=== PATIENT | female | born 1975 | race Caucasian/White ===

== ENCOUNTER 2016-09-10 15:48 | Emergency (ER) | payer OTHER ==
[~2016-09-10] VITALS: Ht 172.7 cm; Wt 86.1 kg
[2016-09-10] MEDS ORDERED: NOVOLOG MI100 UNIT/4 SC (16:22)
[2016-09-10] MEDS ORDERED: LYRICA200 MG PO (16:23)
[2016-09-10] MEDS ORDERED: EFFEXOR XR150 MG PO (16:23)
[2016-09-10 16:35] LABS: MCH 31.6 PG (29.0-34.0); MCHC 34.1 G/DL (30.0-36.0); MCV 92.6 FL (83-99); MEAN PLAT.VOLUME 10.2 uM^3 (9.5-12.4); PLATELET COUNT 227 K/uL (156-360); RBC DIS.WIDTH-CV 12.4 % (11.8-14.6); RBC DIS.WIDTH-SD 42.5 % (39-53); RED BLOOD COUNT 4.97 M/uL (3.80-5.20); WHITE BLOOD COUNT 10.5 K/uL (4.1-10.2)
[2016-09-10 16:45] LABS: CHLORIDE 105 mEq/L (99-109); POTASSIUM 4.2 mEq/L (3.7-5.4); SODIUM 138 mEq/L (136-147)
[2016-09-10 16:47] LABS: GLUCOSE 245 mg/dL (70-99)
[2016-09-10 16:49] LABS: ANION GAP 8 MEQ/L (2-14); TOTAL BILIRUBIN 1.2 mg/dL (0.0-1.0)
[2016-09-10 16:51] LABS: ALKALINE PHOSPHATASE 55 IU/L (3-129); GFR ESTIMATE (CALCULATED) > 59 mL/min/
[2016-09-10 16:52] LABS: UREA NITROGEN (BUN) 11 mg/dL (9-23)
[2016-09-10] MEDS ORDERED: VIBRAMYCIN100 MG PO (17:36)
[2016-09-10] MEDS ORDERED: ZOFRAN ODT4 MG PO (17:41)
[2016-09-10] MEDS ORDERED: ULTRAM50 MG PO (18:12)
[2016-09-10 20:30] VITALS: BP 125/81
== END 2016-09-10 20:32 | disposition home or self-care (01) ==
LOC: EME 15:48
PROVIDERS: Nurse Practitioner Family
DX: L97.519 Non-pressure chronic ulcer of other part of right foot with unspecified severity (principal); E11.9 Type 2 diabetes mellitus without complications; Z91.19 Patient's noncompliance with other medical treatment and regimen; Z88.1 Allergy status to other antibiotic agents; Z88.6 Allergy status to analgesic agent; F17.200 Nicotine dependence, unspecified, uncomplicated
CPT/HCPCS: 73630; 80053; 83605; 85027; 87070; 87077; 87147; 87205; 99281; 99284; J0696; J2405; J7030; J7050

== ENCOUNTER 2017-01-01 12:14 | Emergency (ER) | payer OTHER ==
[~2017-01-01] VITALS: Ht 172.7 cm; Wt 85.0 kg
[~2017-01-01 12:14] MED LIST: EFFEXOR XR150 MG PO; LYRICA200 MG PO; NOVOLOG MI100 UNIT/4 SC; ULTRAM50 MG PO; VIBRAMYCIN100 MG PO; ZOFRAN ODT4 MG PO
[2017-01-01 13:07] LABS: ADD MIUA? NO; BILIRUBIN NEGATIVE; BLOOD NEGATIVE; COLOR YELLOW ((YELLOW)); GLUCOSE (STRIP) >=500; KETONES 20; LEUKOCYTES NEGATIVE; NITRITE NEGATIVE; PROTEIN (STRIP) NEGATIVE; SPECIFIC GRAVITY 1.039 (1.000-1.030); UROBILINOGEN 0.2 MG/DL (0.2-1.0)
[2017-01-01 13:08] LABS: HEMATOCRIT 44.8 % (36.0-46.0); MCH 31.4 PG (29.0-34.0); MCHC 34.4 G/DL (30.0-36.0); MCV 91.4 FL (83-99); MEAN PLAT.VOLUME 9.7 uM^3 (9.5-12.4); PLATELET COUNT 299 K/uL (156-360); RBC DIS.WIDTH-CV 11.7 % (11.8-14.6); RBC DIS.WIDTH-SD 39.2 % (39-53); WHITE BLOOD COUNT 10.1 K/uL (4.1-10.2)
[2017-01-01 13:12] LABS: UCUL ADDED? NO
[2017-01-01 13:13] LABS: CHLORIDE 103 mEq/L (99-109); POTASSIUM 3.7 mEq/L (3.7-5.4); SODIUM 137 mEq/L (136-147)
[2017-01-01 13:15] LABS: GLUCOSE 366 mg/dL (70-99)
[2017-01-01 13:17] LABS: ANION GAP 10 MEQ/L (2-14)
[2017-01-01 13:19] LABS: GFR ESTIMATE (CALCULATED) > 59 mL/min/
[2017-01-01 13:20] LABS: UREA NITROGEN (BUN) 7 mg/dL (9-23)
[2017-01-01] MEDS ORDERED: ZOFRAN4 MG PO (15:11)
[2017-01-01] MEDS ORDERED: MOTRIN600 MG PO (15:11)
[2017-01-01 15:25] VITALS: BP 108/68
== END 2017-01-01 15:27 | disposition home or self-care (01) ==
LOC: EME 12:14
DX: R10.31 Right lower quadrant pain (principal); E11.65 Type 2 diabetes mellitus with hyperglycemia; Z79.4 Long term (current) use of insulin; Z87.442 Personal history of urinary calculi; Z85.41 Personal history of malignant neoplasm of cervix uteri; F17.200 Nicotine dependence, unspecified, uncomplicated
CPT/HCPCS: 74176; 80048; 81003; 83605; 85027; 99281; 99285; J1170; J1885; J2405; J7050

== ENCOUNTER 2017-03-05 20:44 | Emergency (ER) | payer OTHER ==
[~2017-03-05] VITALS: Ht 172.7 cm; Wt 83.1 kg
[~2017-03-05 20:44] MED LIST changes: +MOTRIN600 MG PO; +ZOFRAN4 MG PO
[2017-03-05 21:11] LABS: POINT-OF-CARE METER ID UU13113778
[2017-03-05 21:31] LABS: ADD MIUA? NO; BILIRUBIN SMALL; BLOOD NEGATIVE; COLOR YELLOW ((YELLOW)); GLUCOSE (STRIP) >=500; KETONES 5; LEUKOCYTES NEGATIVE; NITRITE NEGATIVE; PROTEIN (STRIP) 30; UCUL ADDED? NO; UROBILINOGEN 0.2 MG/DL (0.2-1.0)
[2017-03-05 21:33] LABS: HEMATOCRIT 51.8 % (36.0-46.0); MCH 31.8 PG (29.0-34.0); MCHC 34.9 G/DL (30.0-36.0); MEAN PLAT.VOLUME 9.7 uM^3 (9.5-12.4); PLATELET COUNT 432 K/uL (156-360); RBC DIS.WIDTH-CV 12.2 % (11.8-14.6); RBC DIS.WIDTH-SD 40.3 % (39-53); RED BLOOD COUNT 5.69 M/uL (3.80-5.20); WHITE BLOOD COUNT 14.6 K/uL (4.1-10.2)
[2017-03-05 21:49] LABS: CHLORIDE 101 mEq/L (99-109); SODIUM 139 mEq/L (136-147)
[2017-03-05 21:51] LABS: GLUCOSE 272 mg/dL (70-99)
[2017-03-05 21:52] LABS: ANION GAP 19 MEQ/L (2-14)
[2017-03-05 21:55] LABS: GFR ESTIMATE (CALCULATED) > 59 mL/min/
[2017-03-05 21:56] LABS: UREA NITROGEN (BUN) 3 mg/dL (9-23)
[2017-03-05 23:21] LABS: CARBON DIOXIDE (BICARBONATE) 24.9 MEQ/L (20-31)
[2017-03-05] MEDS ORDERED: VIBRAMYCIN100 MG PO (23:48)
[2017-03-05] MEDS ORDERED: FLAGYL500 MG PO (23:48)
[2017-03-06 00:15] LABS: CHLORIDE 107 mEq/L (99-109); POTASSIUM 3.3 mEq/L (3.7-5.4); SODIUM 140 mEq/L (136-147)
[2017-03-06 00:16] LABS: GLUCOSE 220 mg/dL (70-99)
[2017-03-06 00:18] LABS: ANION GAP 14 MEQ/L (2-14)
[2017-03-06 00:20] LABS: GFR ESTIMATE (CALCULATED) > 59 mL/min/
[2017-03-06 00:21] LABS: UREA NITROGEN (BUN) 4 mg/dL (9-23)
[2017-03-06 00:40] VITALS: BP 130/75
[2017-03-06 13:01] LABS: CHLAMYDIA TRACHOMATIS NEGATIVE; NEISSERIA GONORRHOEAE NEGATIVE
== END 2017-03-06 00:40 | disposition home or self-care (01) ==
LOC: EME 20:44
PROVIDERS: Nurse Practitioner Family
DX: N83.01 Follicular cyst of right ovary (principal); R10.31 Right lower quadrant pain; A59.9 Trichomoniasis, unspecified; E11.9 Type 2 diabetes mellitus without complications; Z85.41 Personal history of malignant neoplasm of cervix uteri; Z79.4 Long term (current) use of insulin; F17.200 Nicotine dependence, unspecified, uncomplicated; Z88.5 Allergy status to narcotic agent
CPT/HCPCS: 74177; 80048; 80048 91; 81003; 82803; 82948; 85027; 87210; 87491; 87591; 99281; 99284; J1885; J2405; J7030; J7040

== ENCOUNTER 2017-03-30 21:42 | Inpatient (IN) | payer OTHER ==
[~2017-03-30] VITALS: Ht 172.7 cm; Wt 84.5 kg
[~2017-03-30 21:42] MED LIST changes: +FLAGYL500 MG PO
[2017-03-30 22:58] LABS: HEMATOCRIT 55.1 % (36.0-46.0); HEMOGLOBIN 18.8 G/DL (11.9-15.5); MCH 31.9 PG (29.0-34.0); MCHC 34.1 G/DL (30.0-36.0); MCV 93.4 FL (83-99); PLATELET COUNT 353 K/uL (156-360); RBC DIS.WIDTH-CV 11.9 % (11.8-14.6); WHITE BLOOD COUNT 20.9 K/uL (4.1-10.2)
[2017-03-30 23:08] LABS: ALBUMIN 4.9 g/dL (3.2-4.8); CHLORIDE 94 mEq/L (99-109); POTASSIUM 4.1 mEq/L (3.7-5.4); SODIUM 133 mEq/L (136-147)
[2017-03-30 23:13] LABS: TOTAL BILIRUBIN 0.8 mg/dL (0.0-1.0)
[2017-03-30 23:14] LABS: ALKALINE PHOSPHATASE 98 IU/L (3-129); CREATININE 1.5 mg/dL (0.6-1.3); GFR ESTIMATE (CALCULATED) 40 mL/min/
[2017-03-30 23:15] LABS: UREA NITROGEN (BUN) 11 mg/dL (9-23)
[2017-03-30 23:16] LABS: AST (GOT) 12 IU/L (2-34)
[2017-03-30 23:17] LABS: ALT (GPT) 48 IU/L (3-49)
[2017-03-30 23:23] LABS: QUANTITATIVE HCG < 4.0 MIU/ML
[2017-03-30 23:27] LABS: GLUCOSE 461 mg/dL (70-99)
[2017-03-31 00:02] LABS: APPEARANCE CLOUDY ((CLEAR)); BILIRUBIN NEGATIVE; BLOOD SMALL; COLOR AMBER ((YELLOW)); GLUCOSE (STRIP) >=500; KETONES NEGATIVE; LEUKOCYTES NEGATIVE; NITRITE NEGATIVE; PROTEIN (STRIP) 100; SPECIFIC GRAVITY 1.035 (1.000-1.030); UROBILINOGEN 0.2 MG/DL (0.2-1.0)
[2017-03-31] MEDS ORDERED: CLARITIN,ALAVAR10 MG PO (00:15)
[2017-03-31] MEDS ORDERED: TYLENOL W/COD1 COMB1 PO (00:15)
[2017-03-31] MEDS ORDERED: CLONAZEPAM0.5 MG PO (00:15)
[2017-03-31] MEDS ORDERED: DESYREL100 MG PO (00:16)
[2017-03-31] MEDS ORDERED: AUGMENTIN500 MG PO (00:16)
[2017-03-31] MEDS ORDERED: VENTOLIN HFA18 GM IH (00:16)
[2017-03-31 00:25] LABS: EPITHELIAL CELLS 1+ /HPF; RED BLOOD CELLS 0-5 /HPF (0-5); WHITE BLOOD CELLS NONE SEEN /HPF (0-5)
[2017-03-31 00:26] LABS: BACTERIA RARE /HPF; MUCUS RARE /LPF; OTHER BUDDING YEAST; UCUL ADDED? NO
[2017-03-31 02:08] LABS: CARBON DIOXIDE (BICARBONATE) 24.2 MEQ/L (20-31)
[2017-03-31 02:11] LABS: CHLORIDE 101 mEq/L (99-109); SODIUM 136 mEq/L (136-147)
[2017-03-31 02:12] LABS: MAGNESIUM 1.5 mg/dL (1.3-2.7)
[2017-03-31 02:13] LABS: GLUCOSE 252 mg/dL (70-99)
[2017-03-31 02:17] LABS: CREATININE 1.2 mg/dL (0.6-1.3); GFR ESTIMATE (CALCULATED) 52 mL/min/; PHOSPHORUS 3.5 mg/dL (2.5-4.9)
[2017-03-31 02:18] LABS: UREA NITROGEN (BUN) 12 mg/dL (9-23)
[2017-03-31 06:09] LABS: CHLORIDE 108 mEq/L (99-109); POTASSIUM 3.4 mEq/L (3.7-5.4); SODIUM 138 mEq/L (136-147)
[2017-03-31 06:10] LABS: GLUCOSE 231 mg/dL (70-99)
[2017-03-31 06:15] LABS: UREA NITROGEN (BUN) 9 mg/dL (9-23)
[2017-03-31 06:16] LABS: CREATININE 0.7 mg/dL (0.6-1.3); GFR ESTIMATE (CALCULATED) > 59 mL/min/
[2017-03-31 06:51] LABS: HEMATOCRIT 42.7 % (36.0-46.0); HEMOGLOBIN 14.1 G/DL (11.9-15.5); MCH 31.3 PG (29.0-34.0); MCV 94.7 FL (83-99); PLATELET COUNT 263 K/uL (156-360); RBC DIS.WIDTH-CV 11.9 % (11.8-14.6); RBC DIS.WIDTH-SD 41.5 % (39-53); RED BLOOD COUNT 4.51 M/uL (3.80-5.20); WHITE BLOOD COUNT 13.7 K/uL (4.1-10.2)
[2017-03-31 12:38] VITALS: BP 113/70
[2017-03-31 13:58] LABS: APPEARANCE CLEAR ((CLEAR)); BILIRUBIN NEGATIVE; BLOOD MODERATE; COLOR YELLOW ((YELLOW)); GLUCOSE (STRIP) NEGATIVE; KETONES NEGATIVE; LEUKOCYTES NEGATIVE; NITRITE NEGATIVE; PROTEIN (STRIP) NEGATIVE; UROBILINOGEN 0.2 MG/DL (0.2-1.0)
[2017-03-31 14:16] LABS: BACTERIA NONE SEEN /HPF; EPITHELIAL CELLS NONE SEEN /HPF; MUCUS NONE SEEN /LPF; RED BLOOD CELLS RARE /HPF (0-5); UCUL ADDED? NO; WHITE BLOOD CELLS NONE SEEN /HPF (0-5)
[2017-03-31 15:46] VITALS: BP 120/86
[2017-03-31 17:05] LABS: C DIFF TOXIN NEGATIVE (NEGATIVE)
[2017-03-31 19:19] VITALS: BP 104/63
[2017-04-01] VITALS (7 sets, daily range): BP systolic 100–123; BP diastolic 57–67
[2017-04-01 07:39] LABS: BASOPHIL (%) 1.5 % (0-1); BASOPHIL COUNT 0.2 K/uL (0-0.1); EOSINOPHIL (%) 3.9 % (0-5); EOSINOPHIL COUNT 0.4 K/uL (0-0.3); HEMATOCRIT 39.9 % (36.0-46.0); HEMOGLOBIN 13.3 G/DL (11.9-15.5); IMMATURE GRANULOCYTE (%) 0.3 % (0.0-0.7); LYMPHOCYTE (%) 31.2 % (15-42); LYMPHOCYTE COUNT 3.4 K/uL (1.0-2.8); MCH 31.5 PG (29.0-34.0); MCHC 33.3 G/DL (30.0-36.0); MCV 94.5 FL (83-99); MONOCYTE (%) 4.6 % (3-12); MONOCYTE COUNT 0.5 K/uL (0-0.8); NEUTROPHIL (%) 58.5 % (45-76); NEUTROPHIL COUNT 6.3 K/uL (1.8-6.4); PLATELET COUNT 238 K/uL (156-360); RBC DIS.WIDTH-CV 11.8 % (11.8-14.6); RBC DIS.WIDTH-SD 40.9 % (39-53); RED BLOOD COUNT 4.22 M/uL (3.80-5.20); WHITE BLOOD COUNT 10.8 K/uL (4.1-10.2)
[2017-04-01 08:01] LABS: ALBUMIN 3.2 G/DL (3.2-4.8); ALKALINE PHOSPHATASE 59 IU/L (3-129); ALT (GPT) 21 IU/L (3-49); AST (GOT) 13 IU/L (2-34); CHLORIDE 109 MEQ/L (99-109); CREATININE 0.5 MG/DL (0.6-1.3); GFR ESTIMATE (CALCULATED) > 59 mL/min/; GLUCOSE 161 mg/dL (70-99); POTASSIUM 3.7 MEQ/L (3.7-5.4); SODIUM 140 MEQ/L (136-147); TOTAL BILIRUBIN 0.4 MG/DL (0.0-1.0); TOTAL PROTEIN 5.4 G/DL (6.4-8.3); UREA NITROGEN (BUN) 10 mg/dL (9-23)
[2017-04-02 06:31] LABS: BASOPHIL (%) 1.5 % (0-1); BASOPHIL COUNT 0.2 K/uL (0-0.1); EOSINOPHIL (%) 4.8 % (0-5); EOSINOPHIL COUNT 0.5 K/uL (0-0.3); HEMATOCRIT 37.9 % (36.0-46.0); HEMOGLOBIN 12.8 G/DL (11.9-15.5); IMMATURE GRANULOCYTE (%) 0.5 % (0.0-0.7); LYMPHOCYTE COUNT 3.7 K/uL (1.0-2.8); MCH 31.4 PG (29.0-34.0); MCHC 33.8 G/DL (30.0-36.0); MCV 93.1 FL (83-99); MONOCYTE (%) 4.9 % (3-12); MONOCYTE COUNT 0.5 K/uL (0-0.8); NEUTROPHIL (%) 51.3 % (45-76); NEUTROPHIL COUNT 5.2 K/uL (1.8-6.4); PLATELET COUNT 258 K/uL (156-360); RBC DIS.WIDTH-CV 11.6 % (11.8-14.6); RBC DIS.WIDTH-SD 39.3 % (39-53); RED BLOOD COUNT 4.07 M/uL (3.80-5.20); WHITE BLOOD COUNT 10.1 K/uL (4.1-10.2)
[2017-04-02 07:15] LABS: CHLORIDE 107 MEQ/L (99-109); CREATININE 0.5 MG/DL (0.6-1.3); GFR ESTIMATE (CALCULATED) > 59 mL/min/; GLUCOSE 162 mg/dL (70-99); POTASSIUM 3.2 MEQ/L (3.7-5.4); SODIUM 140 MEQ/L (136-147); UREA NITROGEN (BUN) 7 mg/dL (9-23)
[2017-04-02 07:17] VITALS: BP 100/56
[2017-04-02] MEDS ORDERED: METRONIDAZOLE500 MG PO (10:34)
[2017-04-02] MEDS ORDERED: PANTOPRAZOLE SO40 MG PO (10:35)
[2017-04-02] MEDS ORDERED: PERCOCET 5/31 TABLET PO (10:35)
== END 2017-04-02 10:54 | disposition home or self-care (01) | DRG 872 ==
LOC: EME 21:42 → EDOF 03-31 06:17 → ENRESERV 03-31 06:20 → 2EAST 03-31 12:23
PROVIDERS: Hospitalist; Internal Medicine; Physician Assistant; Surgery
DX: A41.9 Sepsis, unspecified organism (principal); A09 Infectious gastroenteritis and colitis, unspecified; E87.2 Acidosis; F17.200 Nicotine dependence, unspecified, uncomplicated; F32.9 Major depressive disorder, single episode, unspecified; F41.9 Anxiety disorder, unspecified; Z91.14 Patient's other noncompliance with medication regimen; E11.65 Type 2 diabetes mellitus with hyperglycemia; E11.40 Type 2 diabetes mellitus with diabetic neuropathy, unspecified; G89.29 Other chronic pain; I10 Essential (primary) hypertension; N20.0 Calculus of kidney; E27.8 Other specified disorders of adrenal gland; N83.201 Unspecified ovarian cyst, right side; Z85.41 Personal history of malignant neoplasm of cervix uteri; Z90.721 Acquired absence of ovaries, unilateral; Z79.4 Long term (current) use of insulin
CPT/HCPCS: 74176; 76856; 80048; 80048 91; 80053; 81003; 82010; 82803; 82948; 83605; 83735; 84100; 84702; 85025; 85027; 85651; 86140; 86850; 86900; 86901; 87040; 87177; 87329; 87493; 87506; 93005; 99281; 99285; C9113; J1170; J1650; J1815; J2405; J2543; J3010; J3480; J7030; J7040; J7050; S0030

== ENCOUNTER 2017-04-24 22:30 | Emergency (ER) | payer OTHER ==
[~2017-04-24] VITALS: Ht 172.7 cm; Wt 87.0 kg
[~2017-04-24 22:30] MED LIST changes: +AUGMENTIN500 MG PO; +CLARITIN,ALAVAR10 MG PO; +CLONAZEPAM0.5 MG PO; +DESYREL100 MG PO; +METRONIDAZOLE500 MG PO; +PANTOPRAZOLE SO40 MG PO; +PERCOCET 5/31 TABLET PO; +TYLENOL W/COD1 COMB1 PO; +VENTOLIN HFA18 GM IH
[2017-04-24 22:46] LABS: HEMATOCRIT 42.8 % (36.0-46.0); HEMOGLOBIN 14.8 G/DL (11.9-15.5); MCH 31.8 PG (29.0-34.0); MCHC 34.6 G/DL (30.0-36.0); PLATELET COUNT 272 K/uL (156-360); RBC DIS.WIDTH-CV 11.9 % (11.8-14.6); RED BLOOD COUNT 4.65 M/uL (3.80-5.20); WHITE BLOOD COUNT 12.1 K/uL (4.1-10.2)
[2017-04-24 22:56] LABS: ALBUMIN 4.2 g/dL (3.2-4.8); CHLORIDE 100 mEq/L (99-109); SODIUM 132 mEq/L (136-147)
[2017-04-24 22:58] LABS: TOTAL PROTEIN 7.4 g/dL (6.4-8.3)
[2017-04-24 23:02] LABS: GFR ESTIMATE (CALCULATED) > 59 mL/min/
[2017-04-24 23:03] LABS: AST (GOT) 11 IU/L (2-34); UREA NITROGEN (BUN) 15 mg/dL (9-23)
[2017-04-24 23:05] LABS: ALT (GPT) 24 IU/L (3-49)
[2017-04-24 23:10] LABS: QUANTITATIVE HCG < 4.0 MIU/ML
[2017-04-24 23:23] LABS: GLUCOSE 327 mg/dL (70-99)
[2017-04-24 23:26] LABS: TOTAL BILIRUBIN 0.1 mg/dL (0.0-1.0)
[2017-04-24 23:27] LABS: ALKALINE PHOSPHATASE 94 IU/L (3-129); CREATININE 0.8 mg/dL (0.6-1.3)
[2017-04-24 23:31] LABS: APPEARANCE SL.HAZY ((CLEAR)); BILIRUBIN NEGATIVE; BLOOD NEGATIVE; COLOR YELLOW ((YELLOW)); GLUCOSE (STRIP) >=500; KETONES 5; LEUKOCYTES NEGATIVE; NITRITE NEGATIVE; PROTEIN (STRIP) 30; SPECIFIC GRAVITY 1.039 (1.000-1.030); UROBILINOGEN 0.2 MG/DL (0.2-1.0)
[2017-04-24 23:49] LABS: BACTERIA RARE /HPF; EPITHELIAL CELLS 1+ /HPF; MUCUS TRACE /LPF; RED BLOOD CELLS 0-5 /HPF (0-5); UCUL ADDED? NO; WHITE BLOOD CELLS 0-5 /HPF (0-5)
[2017-04-25 00:47] LABS: CARBON DIOXIDE (BICARBONATE) 31.5 MEQ/L (20-31)
[2017-04-25] MEDS ORDERED: BENTYL10 MG PO (02:03)
[2017-04-25] MEDS ORDERED: ZOFRAN4 MG PO (02:03)
[2017-04-25 02:18] VITALS: BP 117/78
== END 2017-04-25 02:27 | disposition home or self-care (01) ==
LOC: EME 22:30
PROVIDERS: Physician Assistant Medical
DX: R10.11 Right upper quadrant pain (principal); E11.9 Type 2 diabetes mellitus without complications; Z79.4 Long term (current) use of insulin; Z85.41 Personal history of malignant neoplasm of cervix uteri; Z90.49 Acquired absence of other specified parts of digestive tract; F17.200 Nicotine dependence, unspecified, uncomplicated; Z98.51 Tubal ligation status; F41.9 Anxiety disorder, unspecified; Z88.5 Allergy status to narcotic agent
CPT/HCPCS: 74177; 80053; 81003; 82010; 82803; 82948; 84702; 85027; 99281; 99285; J2405; J3010; J7030

== ENCOUNTER 2017-04-30 22:39 | Emergency (ER) | payer OTHER ==
[~2017-04-30] VITALS: Ht 172.7 cm; Wt 82.9 kg
[~2017-04-30 22:39] MED LIST changes: +BENTYL10 MG PO
[2017-04-30 23:12] LABS: HEMATOCRIT 45.2 % (36.0-46.0); MCH 31.9 PG (29.0-34.0); MCHC 35.4 G/DL (30.0-36.0); MCV 90.2 FL (83-99); PLATELET COUNT 334 K/uL (156-360); RBC DIS.WIDTH-CV 11.8 % (11.8-14.6); RBC DIS.WIDTH-SD 38.7 % (39-53); RED BLOOD COUNT 5.01 M/uL (3.80-5.20); WHITE BLOOD COUNT 12.9 K/uL (4.1-10.2)
[2017-04-30 23:32] LABS: ALBUMIN 4.5 g/dL (3.2-4.8); CHLORIDE 101 mEq/L (99-109)
[2017-04-30 23:33] LABS: SODIUM 135 mEq/L (136-147)
[2017-04-30 23:35] LABS: GLUCOSE 299 mg/dL (70-99); TOTAL PROTEIN 7.4 g/dL (6.4-8.3)
[2017-04-30 23:38] LABS: ALKALINE PHOSPHATASE 82 IU/L (3-129); CREATININE 0.8 mg/dL (0.6-1.3); GFR ESTIMATE (CALCULATED) > 59 mL/min/
[2017-04-30 23:40] LABS: AST (GOT) 11 IU/L (2-34); UREA NITROGEN (BUN) 12 mg/dL (9-23)
[2017-04-30 23:41] LABS: ALT (GPT) 17 IU/L (3-49)
[2017-04-30 23:47] LABS: QUANTITATIVE HCG < 4.0 MIU/ML
[2017-04-30 23:53] LABS: TOTAL BILIRUBIN 0.3 mg/dL (0.0-1.0)
[2017-05-01 00:20] LABS: APPEARANCE CLEAR ((CLEAR)); BILIRUBIN NEGATIVE; BLOOD NEGATIVE; COLOR YELLOW ((YELLOW)); GLUCOSE (STRIP) >=500; KETONES NEGATIVE; LEUKOCYTES NEGATIVE; NITRITE NEGATIVE; PROTEIN (STRIP) 30; SPECIFIC GRAVITY 1.023 (1.000-1.030); UCUL ADDED? NO; UROBILINOGEN 0.2 MG/DL (0.2-1.0)
[2017-05-01] MEDS ORDERED: ZOFRAN4 MG PO (01:37)
[2017-05-01] MEDS ORDERED: BENTYL10 MG PO (01:37)
[2017-05-01 02:30] VITALS: BP 113/76
== END 2017-05-01 02:31 | disposition home or self-care (01) ==
LOC: EME 22:39
DX: R10.31 Right lower quadrant pain (principal); E11.9 Type 2 diabetes mellitus without complications; F41.9 Anxiety disorder, unspecified; F17.200 Nicotine dependence, unspecified, uncomplicated; Z79.4 Long term (current) use of insulin; Z90.49 Acquired absence of other specified parts of digestive tract; Z85.41 Personal history of malignant neoplasm of cervix uteri; Z88.5 Allergy status to narcotic agent; Z88.8 Allergy status to other drugs, medicaments and biological substances
CPT/HCPCS: 80053; 81003; 84702; 85027

== ENCOUNTER 2017-05-29 17:02 | Emergency (ER) | payer OTHER ==
[~2017-05-29] VITALS: Ht 172.7 cm; Wt 87.6 kg
[2017-05-29] MEDS ORDERED: ULTRAM50 MG PO (19:44)
[2017-05-29 20:14] VITALS: BP 148/92
== END 2017-05-29 19:51 | disposition home or self-care (01) ==
LOC: EME 17:02
DX: S43.401A Unspecified sprain of right shoulder joint, initial encounter (principal); X50.0XXA Overexertion from strenuous movement or load, initial encounter; Y93.F2 Activity, caregiving, lifting; Y99.0 Civilian activity done for income or pay; Y92.199 Unspecified place in other specified residential institution as the place of occurrence of the external cause; E11.9 Type 2 diabetes mellitus without complications; Z79.4 Long term (current) use of insulin; F17.200 Nicotine dependence, unspecified, uncomplicated; Z88.5 Allergy status to narcotic agent; Z88.1 Allergy status to other antibiotic agents; Z88.6 Allergy status to analgesic agent
CPT/HCPCS: 73030; 99281; 99284

== ENCOUNTER 2017-06-22 10:16 | Emergency (ER) | payer OTHER ==
[~2017-06-22] VITALS: Ht 172.7 cm; Wt 81.2 kg
[2017-06-22 10:53] LABS: HEMATOCRIT 48.7 % (36.0-46.0); HEMOGLOBIN 17.4 G/DL (11.9-15.5); MCH 31.9 PG (29.0-34.0); MCHC 35.7 G/DL (30.0-36.0); MCV 89.2 FL (83-99); PLATELET COUNT 281 K/uL (156-360); RBC DIS.WIDTH-CV 11.6 % (11.8-14.6); RBC DIS.WIDTH-SD 37.1 % (39-53); RED BLOOD COUNT 5.46 M/uL (3.80-5.20); WHITE BLOOD COUNT 15.6 K/uL (4.1-10.2)
[2017-06-22 11:02] LABS: ALBUMIN 4.6 g/dL (3.2-4.8); CHLORIDE 95 mEq/L (99-109); POTASSIUM 3.7 mEq/L (3.7-5.4); SODIUM 132 mEq/L (136-147)
[2017-06-22 11:04] LABS: GLUCOSE 381 mg/dL (70-99); TOTAL PROTEIN 7.9 g/dL (6.4-8.3)
[2017-06-22 11:06] LABS: TOTAL BILIRUBIN 0.9 mg/dL (0.0-1.0)
[2017-06-22 11:08] LABS: ALKALINE PHOSPHATASE 91 IU/L (3-129); CREATININE 0.9 mg/dL (0.6-1.3); GFR ESTIMATE (CALCULATED) > 59 mL/min/
[2017-06-22 11:09] LABS: UREA NITROGEN (BUN) 11 mg/dL (9-23)
[2017-06-22 11:10] LABS: AST (GOT) 18 IU/L (2-34)
[2017-06-22 11:11] LABS: APPEARANCE CLEAR ((CLEAR)); BILIRUBIN NEGATIVE; BLOOD NEGATIVE; COLOR YELLOW ((YELLOW)); GLUCOSE (STRIP) >=500; KETONES 5; LEUKOCYTES NEGATIVE; NITRITE NEGATIVE; PROTEIN (STRIP) NEGATIVE; SPECIFIC GRAVITY 1.033 (1.000-1.030); UCUL ADDED? NO; UROBILINOGEN 0.2 MG/DL (0.2-1.0)
[2017-06-22 11:11] LABS: ALT (GPT) 31 IU/L (3-49)
[2017-06-22 11:16] LABS: QUANTITATIVE HCG < 4.0 MIU/ML
[2017-06-22] MEDS ORDERED: TYLENOL WITH C1 EACH PO (14:04)
[2017-06-22] MEDS ORDERED: ZOFRAN4 MG PO (14:04)
[2017-06-22 14:31] VITALS: BP 105/71
== END 2017-06-22 14:38 | disposition home or self-care (01) ==
LOC: EME 10:16
PROVIDERS: Emergency Medicine
DX: E11.65 Type 2 diabetes mellitus with hyperglycemia (principal); D35.02 Benign neoplasm of left adrenal gland; F17.200 Nicotine dependence, unspecified, uncomplicated; Z79.4 Long term (current) use of insulin; Z90.710 Acquired absence of both cervix and uterus; Z90.49 Acquired absence of other specified parts of digestive tract; Z85.41 Personal history of malignant neoplasm of cervix uteri; Z87.440 Personal history of urinary (tract) infections; F41.9 Anxiety disorder, unspecified; Z88.6 Allergy status to analgesic agent; Z88.5 Allergy status to narcotic agent; Z88.1 Allergy status to other antibiotic agents
CPT/HCPCS: 74176; 80053; 81003; 82948; 84702; 85027; 99281; 99285; J2405; J3010; J7030

== ENCOUNTER 2017-09-16 09:18 | Emergency (ER) | payer OTHER ==
[~2017-09-16] VITALS: Ht 172.7 cm; Wt 83.0 kg
[~2017-09-16 09:18] MED LIST changes: +TYLENOL WITH C1 EACH PO
[2017-09-16] MEDS ORDERED: AMOXICILLIN500 M1 PO (10:20)
[2017-09-16] MEDS ORDERED: PERCOCET 5/31 TABLET PO (10:20)
[2017-09-16] MEDS ORDERED: NEOMYCIN-POLYMY10 M1 BOTH EARS (10:20)
[2017-09-16 10:45] VITALS: BP 120/90
== END 2017-09-16 10:47 | disposition home or self-care (01) ==
LOC: EME 09:18
DX: H60.92 Unspecified otitis externa, left ear (principal); R51 Headache; M54.2 Cervicalgia; Z85.41 Personal history of malignant neoplasm of cervix uteri; Z88.1 Allergy status to other antibiotic agents; F17.200 Nicotine dependence, unspecified, uncomplicated
CPT/HCPCS: 99281; 99284

== ENCOUNTER 2017-10-06 19:42 | Observation (INO) | payer OTHER ==
[~2017-10-06] VITALS: Ht 172.7 cm; Wt 90.0 kg
[~2017-10-06 19:42] MED LIST changes: +AMOXICILLIN500 M1 PO; +NEOMYCIN-POLYMY10 M1 BOTH EARS
[2017-10-06 20:19] LABS: PTT 28.3 SEC (25-37)
[2017-10-06 20:26] LABS: AMYLASE 26 IU/L (1-118)
[2017-10-06 20:27] LABS: BASOPHIL (%) 1.7 % (0-1); BASOPHIL COUNT 0.2 K/uL (0-0.1); EOSINOPHIL (%) 2.7 % (0-5); EOSINOPHIL COUNT 0.3 K/uL (0-0.3); HEMATOCRIT 39.7 % (36.0-46.0); HEMOGLOBIN 14.1 G/DL (11.9-15.5); IMMATURE GRANULOCYTE (%) 0.5 % (0.0-0.7); LYMPHOCYTE COUNT 4.2 K/uL (1.0-2.8); MCH 31.3 PG (29.0-34.0); MCHC 35.5 G/DL (30.0-36.0); MONOCYTE (%) 5.3 % (3-12); MONOCYTE COUNT 0.6 K/uL (0-0.8); NEUTROPHIL (%) 51.8 % (45-76); NEUTROPHIL COUNT 5.7 K/uL (1.8-6.4); PLATELET COUNT 299 K/uL (156-360); RBC DIS.WIDTH-CV 11.9 % (11.8-14.6); RBC DIS.WIDTH-SD 38.7 % (39-53); RED BLOOD COUNT 4.51 M/uL (3.80-5.20); WHITE BLOOD COUNT 10.9 K/uL (4.1-10.2)
[2017-10-06 20:33] LABS: TROP-I INTERPRETATION NEGATIVE; TROPONIN-I < 0.01 ng/mL (0.0-0.30)
[2017-10-06 20:35] LABS: LIPASE 31 U/L (1.0-51.0)
[2017-10-06 20:40] LABS: QUANTITATIVE HCG < 4.0 MIU/ML
[2017-10-06 20:45] LABS: ALBUMIN 4.2 g/dL (3.2-4.8); CHLORIDE 87 mEq/L (99-109); POTASSIUM 3.8 mEq/L (3.7-5.4); SODIUM 131 mEq/L (136-147)
[2017-10-06 20:47] LABS: TOTAL PROTEIN 7.2 g/dL (6.4-8.3)
[2017-10-06 20:49] LABS: TOTAL BILIRUBIN 0.5 mg/dL (0.0-1.0)
[2017-10-06 20:51] LABS: ALKALINE PHOSPHATASE 171 IU/L (3-129); CREATININE 0.9 mg/dL (0.6-1.3); GFR ESTIMATE (CALCULATED) > 59 mL/min/
[2017-10-06 20:52] LABS: UREA NITROGEN (BUN) 4 mg/dL (9-23)
[2017-10-06 20:53] LABS: AST (GOT) 46 IU/L (2-34)
[2017-10-06 20:54] LABS: ALT (GPT) 231 IU/L (3-49)
[2017-10-06 21:16] LABS: GLUCOSE 621 mg/dL (70-99)
[2017-10-06 21:41] LABS: AMPHETAMINE NEGATIVE (500 ng/mL); BARBITURATES NEGATIVE (200 ng/mL); BENZODIAZEPINES NEGATIVE (150 ng/mL); BUPRENORPHINE NEGATIVE (10 ng/mL); COCAINE NEGATIVE (150 ng/mL); METHADONE NEGATIVE (200 ng/mL); METHAMPHETAMINE NEGATIVE (500 ng/mL); OPIATES (MORPHINE) PRESUMPTIVE POSITIVE (100 ng/mL); OXYCODONE NEGATIVE (100 ng/mL); PHENCYCLIDINE NEGATIVE (25 ng/mL); PROPOXYPHENE NEGATIVE (300 ng/mL); THC CANNABINOIDS NEGATIVE (50 ng/mL); TRICYCLIC ANTIDEPRESSANTS NEGATIVE (300 ng/mL)
[2017-10-06] MEDS ORDERED: ONDANSETRON HCL4 MG PO (21:44)
[2017-10-06] MEDS ORDERED: LYRICA200 MG PO (21:44)
[2017-10-06] MEDS ORDERED: NOVOLOG MI100 UNIT/2 SC (21:45)
[2017-10-06] MEDS ORDERED: CLONAZEPAM0.5 MG PO (21:45)
[2017-10-06] MEDS ORDERED: QUETIAPINE FUMA50 MG PO (21:46)
[2017-10-06] MEDS ORDERED: VENLAFAXINE HC150 M1 PO (21:46)
[2017-10-06] MEDS ORDERED: DOXYCYCLINE HY100 MG PO (21:47)
[2017-10-06] MEDS ORDERED: FLONASE16 G1 BOTH NARES (21:48)
[2017-10-07 00:16] VITALS: BP 125/76
[2017-10-07 01:38] LABS: ACETAMINOPHEN (TYLENOL) < 10 MCG/ML (10-30)
[2017-10-07 01:52] LABS: HDL CHOLESTEROL 22 MG/DL (Desirable>=50); NON-HDL CHOLESTEROL 198 mg/dL (Desirable<160); TOTAL CHOLESTEROL 220 mg/dL (Desirable<200); TRIGLYCERIDES 935 MG/DL (Normal: <150)
[2017-10-07 04:11] VITALS: BP 108/64
[2017-10-07 07:00] VITALS: BP 108/55
[2017-10-07 08:44] LABS: CHLORIDE 101 MEQ/L (99-109); UREA NITROGEN (BUN) 3 mg/dL (9-23)
[2017-10-07 08:52] LABS: CREATININE 0.4 MG/DL (0.6-1.3); GFR ESTIMATE (CALCULATED) > 59 mL/min/; GLUCOSE 196 mg/dL (70-99); POTASSIUM 2.9 MEQ/L (3.7-5.4); SODIUM 139 MEQ/L (136-147)
[2017-10-07 10:01] LABS: HEMOGLOBIN A1c (GLYCOHEMOGLOB) 13.7 % (Below 5.7)
[2017-10-07] MEDS ORDERED: ATORVASTATIN CA40 MG PO (10:42)
[2017-10-07] MEDS ORDERED: NICOTINE PATCH1 EAC2 TD (10:42)
[2017-10-07] MEDS ORDERED: K-DUR20 MEQ PO (10:44)
== END 2017-10-07 12:05 | disposition home or self-care (01) ==
LOC: EME 19:42 → EDOF 22:34 → ENRESERV 22:36 → 4SOUTH 23:48 → ENPENDDIS 10-07 11:56 → 4SOUTH 10-07 12:05
PROVIDERS: Emergency Medicine; Hospitalist
DX: E11.65 Type 2 diabetes mellitus with hyperglycemia (principal); R51 Headache; E86.0 Dehydration; G89.4 Chronic pain syndrome; R79.89 Other specified abnormal findings of blood chemistry; F41.9 Anxiety disorder, unspecified; F32.9 Major depressive disorder, single episode, unspecified; J32.0 Chronic maxillary sinusitis; F17.200 Nicotine dependence, unspecified, uncomplicated; Z86.010 Personal history of colon polyps; Z86.14 Personal history of Methicillin resistant Staphylococcus aureus infection; Z85.41 Personal history of malignant neoplasm of cervix uteri; Z90.710 Acquired absence of both cervix and uterus; Z90.49 Acquired absence of other specified parts of digestive tract; Z82.3 Family history of stroke; Z82.49 Family history of ischemic heart disease and other diseases of the circulatory system; Z88.1 Allergy status to other antibiotic agents; Z88.5 Allergy status to narcotic agent
CPT/HCPCS: 70450; 70496; 70498; 76705; 80047; 80048; 80053; 80061; 81003; 82150; 82948; 83036; 83690; 84484; 84702; 84999; 85025; 85610; 85730; 93005; 99281; 99285; G0378; G0480; G8978 GP CH; G8979 GP CH; G8980 GP CH; J1644; J1815; J7030; J7040

== ENCOUNTER 2017-10-11 15:46 | Emergency (ER) | payer OTHER ==
[~2017-10-11] VITALS: Ht 172.7 cm; Wt 88.4 kg
[~2017-10-11 15:46] MED LIST changes: +ATORVASTATIN CA40 MG PO; +DOXYCYCLINE HY100 MG PO; +FLONASE16 G1 BOTH NARES; +K-DUR20 MEQ PO; +NICOTINE PATCH1 EAC2 TD; +NOVOLOG MI100 UNIT/2 SC; +ONDANSETRON HCL4 MG PO; +QUETIAPINE FUMA50 MG PO; +VENLAFAXINE HC150 M1 PO
[2017-10-11] MEDS ORDERED: ULTRAM50 MG PO (18:21)
[2017-10-11 18:43] VITALS: BP 135/99
== END 2017-10-11 18:43 | disposition home or self-care (01) ==
LOC: EME 15:46
DX: S70.01XA Contusion of right hip, initial encounter (principal); W18.11XA Fall from or off toilet without subsequent striking against object, initial encounter; E11.40 Type 2 diabetes mellitus with diabetic neuropathy, unspecified; F17.200 Nicotine dependence, unspecified, uncomplicated; Z79.4 Long term (current) use of insulin; Z88.5 Allergy status to narcotic agent; Z88.1 Allergy status to other antibiotic agents; Z88.6 Allergy status to analgesic agent; Z88.8 Allergy status to other drugs, medicaments and biological substances
CPT/HCPCS: 73502; 99281; 99284

== ENCOUNTER 2017-11-17 19:04 | Emergency (ER) | payer OTHER ==
[~2017-11-17] VITALS: Ht 172.7 cm; Wt 77.4 kg
[2017-11-17 21:04] LABS: CARBON DIOXIDE (BICARBONATE) 24.3 MEQ/L (20-31)
[2017-11-17 21:36] LABS: ALBUMIN 4.8 g/dL (3.2-4.8)
[2017-11-17 21:37] LABS: CHLORIDE 93 mEq/L (99-109); POTASSIUM 3.1 mEq/L (3.7-5.4); SODIUM 132 mEq/L (136-147)
[2017-11-17 21:39] LABS: TOTAL PROTEIN 7.9 g/dL (6.4-8.3)
[2017-11-17 21:42] LABS: ALKALINE PHOSPHATASE 102 IU/L (3-129)
[2017-11-17 21:43] LABS: CREATININE 0.8 mg/dL (0.6-1.3); GFR ESTIMATE (CALCULATED) > 59 mL/min/
[2017-11-17 21:44] LABS: AST (GOT) 10 IU/L (2-34); UREA NITROGEN (BUN) 10 mg/dL (9-23)
[2017-11-17 21:45] LABS: ALT (GPT) 22 IU/L (3-49)
[2017-11-17 21:46] LABS: GLUCOSE 444 mg/dL (70-99)
[2017-11-17 22:08] LABS: HEMATOCRIT 46.5 % (36.0-46.0); HEMOGLOBIN 17.3 G/DL (11.9-15.5); MCH 31.2 PG (29.0-34.0); MCHC 37.2 G/DL (30.0-36.0); MCV 83.9 FL (83-99); PLAT.SUFFICIENCY INCREASED; PLATELET COUNT 379 K/uL (156-360); RBC DIS.WIDTH-CV 12.4 % (11.8-14.6); RBC DIS.WIDTH-SD 37.5 % (39-53); RED BLOOD COUNT 5.54 M/uL (3.80-5.20); WHITE BLOOD COUNT 12.6 K/uL (4.1-10.2)
[2017-11-17 22:41] LABS: APPEARANCE CLEAR ((CLEAR)); BILIRUBIN NEGATIVE; BLOOD NEGATIVE; COLOR YELLOW ((YELLOW)); GLUCOSE (STRIP) >=500; KETONES 20; LEUKOCYTES NEGATIVE; NITRITE NEGATIVE; PROTEIN (STRIP) 30; SPECIFIC GRAVITY 1.035 (1.000-1.030); UCUL ADDED? NO; UROBILINOGEN 0.2 MG/DL (0.2-1.0)
[2017-11-18] MEDS ORDERED: ZOFRAN ODT4 MG PO (00:01)
[2017-11-18 00:20] VITALS: BP 121/82
[2017-11-18 02:38] LABS: QUANTITATIVE HCG < 4.0 MIU/ML
== END 2017-11-18 00:21 | disposition home or self-care (01) ==
LOC: EME 19:04
PROVIDERS: Physician Assistant
DX: R10.9 Unspecified abdominal pain (principal); R11.2 Nausea with vomiting, unspecified; E11.65 Type 2 diabetes mellitus with hyperglycemia; E78.5 Hyperlipidemia, unspecified; K21.9 Gastro-esophageal reflux disease without esophagitis; J44.9 Chronic obstructive pulmonary disease, unspecified; F32.9 Major depressive disorder, single episode, unspecified; F41.9 Anxiety disorder, unspecified; F17.200 Nicotine dependence, unspecified, uncomplicated; Z87.442 Personal history of urinary calculi; Z85.41 Personal history of malignant neoplasm of cervix uteri; Z90.49 Acquired absence of other specified parts of digestive tract; Z90.710 Acquired absence of both cervix and uterus; Z79.4 Long term (current) use of insulin; Z88.5 Allergy status to narcotic agent; Z88.1 Allergy status to other antibiotic agents; Z88.6 Allergy status to analgesic agent; Z88.8 Allergy status to other drugs, medicaments and biological substances
CPT/HCPCS: 74176; 80053; 81003; 82803; 82948; 83605; 84702; 85027; 99281; 99285; J2405; J3010; J7030

== ENCOUNTER 2017-12-05 21:37 | Emergency (ER) | payer OTHER ==
[~2017-12-05] VITALS: Ht 172.7 cm; Wt 81.5 kg
[2017-12-05] MEDS ORDERED: PERCOCET 5/31 TABLET PO (23:33)
[2017-12-06 00:05] VITALS: BP 120/83
== END 2017-12-06 00:06 | disposition home or self-care (01) ==
LOC: EME 21:37
DX: M19.011 Primary osteoarthritis, right shoulder (principal); S43.001A Unspecified subluxation of right shoulder joint, initial encounter; X58.XXXA Exposure to other specified factors, initial encounter; Y93.E1 Activity, personal bathing and showering; Y92.002 Bathroom of unspecified non-institutional (private) residence as the place of occurrence of the external cause; E11.9 Type 2 diabetes mellitus without complications; Z79.4 Long term (current) use of insulin; F17.200 Nicotine dependence, unspecified, uncomplicated
CPT/HCPCS: 73030; 99281; 99283